=== PATIENT | male | born 1955 | race Caucasian/White ===

== ENCOUNTER 2021-05-23 14:35 | Emergency (ER) | payer MEDICARE ==
[2021-05-23] MEDS ORDERED: DUONEB 0.5-3 MG/3 ml Neb IH ONE ×2 (14:52→15:12)
[2021-05-23] MEDS ORDERED: solu-MEDROL 125 MG, Sterile H2O 10 ml 2 ML IV ONE ×2 (14:52)
[2021-05-23] MEDS ORDERED: Zofran 4 MG/2 ML VIAL IV ONE (14:57)
--- NOTE | 2021-05-23 15:10 | ERPHSYRPT ---
- History of Present Illness Time Seen by Provider: 05/23/21 14:35 Source: patient Exam Limitations: no limitations Patient Subjective Stated Complaint: PT states "I have been short of breath for the past two days. I fell and hurt my ribs on the right side." Triage Nursing Assessment: Pt presented alert and oriented X 3, skin pwd Pt ambulates with an upright steady gait. PT able to speak in clear full sentences. PT makes comments on all his vitals saying how horrible they are. Pt asking about specific doctors as well. Pt resting comfortably on the bed. Physician History: 66 years old male with history of chronic respiratory failure secondary to COPD on 3 L oxygen, coronary artery disease status post CABG, congestive heart failure, atrial fibrillation on Xarelto presented in the ER with chief complaint of increasing shortness of breath and right-sided chest pain for the last 2 days. Patient report it started after he stumbled and fell 2 days ago on ground hitting his right hip and right chest wall. He is able to ambulate without any difficulty and has minimal discomfort in the right hip but complaining of pain in the right anterior chest wall especially with deep breathing and also having increasing difficulty breathing especially with activity. Reports oxygen saturation dropping to 70s despite being on 3 L earlier today. No left-sided chest pain. Does have chronic productive cough which is not any worse than usual. No fever or chills reported. Vaccinated against COVID-19. Timing/Duration: day(s) (2), intermittent, gradual onset, worse Activities at Onset: activity, rest Severity of Dyspnea-Max: moderate Severity of Dyspnea-Current: moderate Modifying Factors: Worsens With: activity, coughing, deep breath Associated Symptoms: cough, chest pain/discomfort, wheezing, productive cough Allergies/Adverse Reactions: morphine Allergy (Verified 06/02/13 09:48) Home Medications: Albuterol/Ipratropium 3ml Neb* [DUONEB 0.5-3 MG/3 ml Neb] 3 ml IH Q4HPRN PRN 06/02/13 [History] ALPRAZolam 0.5 MG [xanAX 0.5 MG] 0.5 mg PO TID PRN PRN 06/19/13 [History] ALPRAZolam 1 MG [Xanax 1 mg] 1 mg PO DAILY 06/19/13 [History] Budesonide/Formoterol Fumarate [Symbicort 160-4.5 Mcg Inhaler] 2 inh IH DAILY 06/19/13 [History] Furosemide 20 mg [Lasix 20 mg] 20 mg PO DAILY 06/19/13 [History] Nitroglycerin 0.4 mg Tablet [Nitrostat 0.4 MG Tablet] 1 tablet SL Q5MIN PRN MR X 3 PRN 06/19/13 [History] PANTOPRAZOLE 40 mg Tablet [Protonix 40MG Tablet] 40 mg PO DAILY 06/19/13 [History] Prednisone 5 mg PO DAILY 06/19/13 [History] Ranolazine 500 MG [Ranexa 500 MG] 500 mg PO BID 06/19/13 [History] Rivaroxaban [Xarelto] 15 mg PO DAILY 06/19/13 [History] Digoxin 0.125 mg Tablet [Lanoxin 0.125MG TABLET] 0.125 mg PO WEEKLY 05/23/21 [History] Fluticasone/Umeclidin/Vilanter [Trelegy Ellipta 200-62.5-25] 1 unit PO DAILY 05/23/21 [History] Spironolactone [Aldactone] 50 mg PO DAILY 05/23/21 [History] Hx Tetanus, Diphtheria Vaccination/Date Given: No Hx Influenza Vaccination/Date Given: No Hx Pneumococcal Vaccination/Date Given: No Immunizations Up to Date: Yes Travel Risk - International Travel Have you traveled outside of the country in past 3 weeks: No - Coronavirus Screening Are you exhibiting any of the following symptoms?: No Close contact with a COVID-19 positive Pt in past 14-21 Days: No - Vaccine Status Have you recieved a Covid-19 vaccination: Yes [employer]: Moderna - Vaccination Dates Date of 2cond Vaccination (if applicable): 09/08/2020 - Review of Systems Constitutional: No Symptoms Eyes: No Symptoms Ears, Nose, & Throat: No Symptoms Respiratory: Cough, Dyspnea, Dyspnea on Exertion (REA), Wheezing Cardiac: Chest Pain Abdominal/Gastrointestinal: No Symptoms Genitourinary Symptoms: No Symptoms Musculoskeletal: Injury Skin: No Symptoms Neurological: No Symptoms Psychological: No Symptoms Endocrine: No Symptoms Hematologic/Lymphatic: No Symptoms Immunological/Allergic: No Symptoms - Past Medical History Pertinent Past Medical History: Yes Neurological History: No Pertinent History ENT History: No Pertinent History Cardiac History: Arrhythmia, Coronary Artery Disease, Myocardial Infarction ([place]) Respiratory History: COPD Musculoskeletal History: No Pertinent History GI Medical History: GERD History: No Pertinent History Psycho-Social History: No Pertinent History Male Reproductive Disorders: No Pertinent History Other Medical History: atrial flutter/ fib. CHF. [place] - Past Surgical History Past Surgical History: Yes Neuro Surgical History: No Pertinent History Cardiac: CABG Respiratory: No Pertinent History Gastrointestinal: No Pertinent History Genitourinary: No Pertinent History Musculoskeletal: No Pertinent History Male Surgical History: No Pertinent History - Social History Smoking Status: Former smoker Exposure to second hand smoke: No Drug Use: none Patient Lives Alone: No - Nursing Vital Signs Nursing Vital Signs: Initial Vital Signs Temperature 97.6 F 05/23/21 14:35 Pulse Rate 110 H 05/23/21 14:35 Respiratory Rate 24 05/23/21 14:35 Blood Pressure 125/83 05/23/21 14:35 O2 Sat by Pulse Oximetry 96 05/23/21 14:35 Pain Scale Pain Intensity 4 - Physical Exam General Appearance: no apparent distress, alert Eye Exam: PERRL/EOMI, eyes nml inspection Ears, Nose, Throat Exam: hearing grossly normal, normal ENT inspection, normal pharynx Neck Exam: normal inspection, non-tender, supple, full range of motion Respiratory Exam: diminished breath sounds, wheezing, other (Right mid anterior chest wall tenderness. No crepitus. No contusion) Cardiovascular/Chest Exam: normal heart sounds, irregular Abdominal/Gastrointestinal Exam: soft, normal bowel sounds, No tenderness Extremity Exam: non-tender, normal range of motion, normal inspection, normal capillary refill Neurologic Exam: alert, oriented x 3, cooperative, visual c developer II-XII nml as tested Skin Exam: normal color SpO2 Interpretation: normal, O2 applied SpO2: 96 O2 Delivery: Nasal Cannula (3L) - Course EKG Interpreted by Me: RATE (115. Atrial flutter 2;1 conduction), NORMAL AXIS, prolonged QT interval, Non-specific ST Changes (Nonspecific T wave changes) Ordered Tests: Active Orders 24 hr Category Date Time Status Wool Merchant STAT Care 05/23/21 14:55 Active EKG-ER Only STAT Care 05/23/21 14:52 Active IV Insertion STAT Care 05/23/21 14:52 Active Oxygen-ED Only Nasal Cannula 3 lpm Care 05/23/21 14:52 Active 1600 Calorie Carbohydrate Diet [Consistent Carbohydrate Diet 05/24/21 Dinner Active Diet 1600 Calorie] CHEST 1 VIEW (PORTABLE) Stat Exams 05/23/21 15:46 Completed RIBS UNILATERAL Stat Exams 05/23/21 Completed ABG [ARTERIAL BLOOD GASES] Stat Lab 05/23/21 17:25 Completed BLOOD CULTURE Stat Lab 05/23/21 15:19 Received CBC W DIFF Stat Lab 05/23/21 14:55 Completed CMP Stat Lab 05/23/21 14:55 Completed Lactic Acid Stat Lab 05/23/21 15:00 Completed MAGNESIUM Stat Lab 05/23/21 14:55 Completed NT PRO BNP Stat Lab 05/23/21 14:55 Completed TROPONIN Q3H Lab 05/23/21 14:55 Completed TROPONIN Q3H Lab 05/23/21 18:00 Received TROPONIN Q3H Lab 05/23/21 21:00 Ordered TROPONIN Q3H Lab 05/24/21 00:00 Ordered TROPONIN Q3H Lab 05/24/21 03:00 Ordered Respiratory Therapy Assessment DAILY RT 05/23/21 15:24 Active Medication Summary Discontinued Medications Generic Name Dose Route Start Last Admin Trade Name Freq PRN Reason Stop Dose Admin Albuterol/Ipratropium 3 ml 05/23/21 14:52 05/23/21 15:15 Ipratropium/Albuterol Sulfate 3 Ml Ampul.Neb IH 05/23/21 14:53 3 ml STAT ONE Administration Albuterol/Ipratropium Confirm 05/23/21 15:12 Ipratropium/Albuterol Sulfate 3 Ml Ampul.Neb Administered 05/23/21 15:13 Dose 3 ml IH .STK-MED ONE Methylprednisolone Sodium 0 mg 05/23/21 14:52 05/23/21 15:25 Succinate 125 mg/ Sterile IV 05/23/21 14:53 125 mg Water 2 ml STAT ONE Administration Doxycycline Hyclate 100 mg 05/23/21 17:47 05/23/21 17:52 Doxycycline Hyclate 100 Mg Tablet PO 05/23/21 17:48 100 mg STAT ONE Administration Doxycycline Hyclate Confirm 05/23/21 17:51 Doxycycline Hyclate 100 Mg Tablet Administered 05/23/21 17:52 Dose 100 mg .ROUTE .STK-MED ONE Fentanyl Citrate 50 mcg 05/23/21 14:57 05/23/21 15:32 Fentanyl Citrate 100 Mcg/2 Ml* Vial IV 05/23/21 14:58 Not Given STAT ONE Fentanyl Citrate Confirm 05/23/21 15:17 Fentanyl Citrate 100 Mcg/2 Ml* Vial Administered 05/23/21 15:18 Dose 100 mcg .ROUTE .STK-MED ONE Methylprednisolone Sodium Succinate Confirm 05/23/21 15:17 Methylprednis Sod Succ 125 Mg/2 Ml Vial Administered 05/23/21 15:18 Dose 125 mg .ROUTE .STK-MED ONE Metoprolol Tartrate 2.5 mg 05/23/21 16:34 05/23/21 17:05 Metoprolol Tartrate 5 Mg/5 Ml Injection IV 05/23/21 16:35 2.5 mg STAT ONE Administration Metoprolol Tartrate Confirm 05/23/21 17:02 Metoprolol Tartrate 5 Mg/5 Ml Injection Administered 05/23/21 17:03 Dose 5 mg IV .STK-MED ONE Ondansetron HCl 4 mg 05/23/21 14:57 05/23/21 15:26 Ondansetron Hcl 4 Mg/2 Ml Vial IV 05/23/21 14:58 4 mg STAT ONE Administration Ondansetron HCl Confirm 05/23/21 15:16 Ondansetron Hcl 4 Mg/2 Ml Vial Administered 05/23/21 15:17 Dose 4 mg .ROUTE .STK-MED ONE Sterile Water Confirm 05/23/21 15:17 Water For Injection,Sterile 10 Ml Vial Administered 05/23/21 15:18 Dose 10 ml IJ .STK-MED ONE Lab/Rad Data: Laboratory Result Diagrams 05/23/21 14:55 05/23/21 14:55 Laboratory Results 05/23/21 05/23/21 05/23/21 Range/Units 17:25 15:13 15:00 WBC (4.0-10.5) K/mm3 RBC (4.1-5.6) M/mm3 Hgb (12.5-18.0) gm/dl Hct (42-50) % MCV (78-100) fl MCH (26-32) pg MCHC (32-36) g/dl RDW (11.5-14.0) % Plt Count (150-450) K/mm3 MPV (7.5-11.0) fl Gran % (36.0-66.0) % Eos # (Auto) (0-0.5) Absolute Lymphs (auto) (1.0-4.6) Absolute Monos (auto) (0.0-1.3) Lymphocytes % (24.0-44.0) % Monocytes % (0.0-12.0) % Eosinophils % (0.00-5.0) % Basophils % (0.0-0.4) % Absolute Granulocytes (1.4-6.9) Basophils # (0-0.4) Puncture Site RIGHT BRACHIAL pCO2 90 H* (35-45) mmHg pO2 84 (75-100) mmHg Base Excess 17.9 H (-2.0-2.0) O2 Saturation 94.6 (94-100) g/dF ABG pH 7.34 L (7.35-7.45) ABG HCO3 48.6 H* (22-28) ABG O2 Sat (Measured) 97.3 (95-100) % Freddie Test NOT APPLICABLE A-a Gradient 32 a/A Ratio 0.72 Hemoglobin 13.7 Carboxyhemoglobin 1.8 (0.0-6.9) % THgb Methemoglobin 0.9 L (1.4-1.5) % Temperature 37.0 C POC O2 Flow Rate 32 % Sodium (137-145) mmol/L Potassium 5.2 H (3.5-5.1) mmol/L Chloride (98-107) mmol/L Carbon Dioxide (22-30) mmol/L Anion Gap (5-15) MEQ/L BUN (9-20) mg/dL Creatinine (0.66-1.25) mg/dL Estimated GFR ML/MIN Glucose (74-106) mg/dL Lactic Acid 1.2 (0.4-2.0) Calcium (8.4-10.2) mg/dL Magnesium (1.6-2.3) mg/dL Total Bilirubin (0.2-1.3) mg/dL AST (17-59) U/L ALT (0-50) U/L Alkaline Phosphatase (38-126) U/L Troponin I (0.000-0.034) ng/mL NT-Pro-B Natriuret Pep (0-900) pg/mL Serum Total Protein (6.3-8.2) g/dL Albumin (3.5-5.0) g/dL Digoxin < 0.4 L (0.8-1.9) ng/mL 05/23/21 05/23/21 05/23/21 Range/Units 14:55 14:55 14:55 WBC 7.9 (4.0-10.5) K/mm3 RBC 4.30 (4.1-5.6) M/mm3 Hgb 13.4 (12.5-18.0) gm/dl Hct 44.4 (42-50) % MCV 103.3 H (78-100) fl MCH 31.2 (26-32) pg MCHC 30.2 L (32-36) g/dl RDW 11.9 (11.5-14.0) % Plt Count 100 L (150-450) K/mm3 MPV 12.6 H (7.5-11.0) fl Gran % 87.4 H (36.0-66.0) % Eos # (Auto) 0.03 (0-0.5) Absolute Lymphs (auto) 0.49 L (1.0-4.6) Absolute Monos (auto) 0.47 (0.0-1.3) Lymphocytes % 6.2 L (24.0-44.0) % Monocytes % 5.9 (0.0-12.0) % Eosinophils % 0.4 (0.00-5.0) % Basophils % 0.1 (0.0-0.4) % Absolute Granulocytes 6.93 H (1.4-6.9) Basophils # 0.01 (0-0.4) Puncture Site pCO2 (35-45) mmHg pO2 (75-100) mmHg Base Excess (-2.0-2.0) O2 Saturation (94-100) g/dF ABG pH (7.35-7.45) ABG HCO3 (22-28) ABG O2 Sat (Measured) (95-100) % Freddie Test A-a Gradient a/A Ratio Hemoglobin Carboxyhemoglobin (0.0-6.9) % THgb Methemoglobin (1.4-1.5) % Temperature C POC O2 Flow Rate % Sodium 138 (137-145) mmol/L Potassium 5.0 (3.5-5.1) mmol/L Chloride 87 L (98-107) mmol/L Carbon Dioxide > 40 H (22-30) mmol/L Anion Gap 11 (5-15) MEQ/L BUN 21 H (9-20) mg/dL Creatinine 0.69 (0.66-1.25) mg/dL Estimated GFR > 60.0 ML/MIN Glucose 194 H (74-106) mg/dL Lactic Acid (0.4-2.0) Calcium 9.5 (8.4-10.2) mg/dL Magnesium 1.9 (1.6-2.3) mg/dL Total Bilirubin 0.60 (0.2-1.3) mg/dL AST 18 (17-59) U/L ALT 6 (0-50) U/L Alkaline Phosphatase 77 (38-126) U/L Troponin I 0.012 (0.000-0.034) ng/mL NT-Pro-B Natriuret Pep 900 (0-900) pg/mL Serum Total Protein 6.4 (6.3-8.2) g/dL Albumin 3.6 (3.5-5.0) g/dL Digoxin (0.8-1.9) ng/mL - Progress Progress: improved Air Movement: good Progress Note: 05/23/21 18:28 66 years old is evaluated for right-sided chest pain after fall and some shortness of breath. EKG showed atrial flutter without any ST elevation and negative troponins x2. Chest x-ray negative for any acute cardiopulmonary findings. Given Solu-Medrol along with breathing treatment, on reevaluation feeling better. Has normal white count, chemistry profile showed CO2 retention but comparison with previous ABGs revealed he is always high with CO2 retention. He is maintaining oxygen saturation around 98% on 3 L which he is normally on. Not in any distress. Nontoxic in appearance. I believe patient has COPD exacerbation and given a dose of doxycycline in here and will continue to go home with short course of steroid. Discussed signs symptoms of worsening needing return to ER which he seems understanding. Antibiotics given: Yes Counseled pt/family regarding: lab results, diagnosis, need for follow-up, rad results - Departure Departure Disposition: Home Clinical Impression: COPD exacerbation Condition: Stable Critical Care Time: No Referrals: FAUSTINO,KENAN D [Primary Care Provider] - (1-2 days for reevaluation) Instructions: Chronic Obstructive Pulmonary Disease, Exacerbation of COPD (DC) Additional Instructions: Follow-up with primary care and pulmonology for reevaluation. Continue with breathing treatments every 4-6 hours which you have at home. Return to ER for any worsening shortness of breath or if develop chest pain/fever chills etc. Prescriptions: Prednisone 20 mg [Deltasone 20 mg] 60 mg PO DAILY 5 Days #15 tablet Doxycycline Hyclate 100 mg [Vibramycin 100 MG] 100 mg PO BID #14 tab
[2021-05-23] MEDS ORDERED: Zofran 4 MG/2 ML VIAL ONE (15:16)
[2021-05-23] MEDS ORDERED: solu-MEDROL ONE (15:17)
[2021-05-23] MEDS ORDERED: Sterile H2O 10 ml IJ ONE (15:17)
[2021-05-23] MEDS ORDERED: SUBLIMAZE 100 MCG/2 ML ONE (15:17)
[2021-05-23] MEDS: SUBLIMAZE 100 MCG/2 ML IV ONE ×2 (15:24→15:32)
[2021-05-23 15:26] LABS: Absolute Neutrophil Ct (ANC) 6.93 (1.4-6.9); BASOPHIL % 0.1 % (0.0-0.4); Basophil (Absolute #) 0.01 (0-0.4); Eosinophil % 0.4 % (0.00-5.0); Eosinophil (Absolute #) 0.03 (0-0.5); Hematocrit 44.4 % (42-50); Hemoglobin 13.4 gm/dl (12.5-18.0); Lymphocyte (Absolute #) 0.49 (1.0-4.6); Lymphocytes % 6.2 % (24.0-44.0); Mean Cell Volume 103.3 fl (78-100); Mean Corpuscular Hemoglobin 31.2 pg (26-32); Mean Corpuscular Hgb Concent. 30.2 g/dl (32-36); Mean Platelet Volume 12.6 fl (7.5-11.0); Monocyte (Absolute #) 0.47 (0.0-1.3); Monocytes % 5.9 % (0.0-12.0); Neutrophil % 87.4 % (36.0-66.0); Platelet Count 100 K/mm3 (150-450); Red Cell Distribution Width 11.9 % (11.5-14.0); White Blood Count 7.9 K/mm3 (4.0-10.5)
[2021-05-23 15:57] LABS: ALBUMIN 3.6 g/dL (3.5-5.0); ALKALINE PHOSPHATASE 77 U/L (38-126); BLOOD UREA NITROGEN 21 mg/dL (9-20); CHLORIDE 87 mmol/L (98-107); Calcium 9.5 mg/dL (8.4-10.2); Creatinine 1 0.69 mg/dL (0.66-1.25); EST GLOMERULAR FILTRATION RATE > 60.0 ML/MIN; Glucose 194 mg/dL (74-106); MAGNESIUM 1.9 mg/dL (1.6-2.3); NT PRO BNP 900 pg/mL (0-900); SGOT/AST 18 U/L (17-59); SGPT/ALT 6 U/L (0-50); SODIUM 138 mmol/L (137-145); Total Protein 6.4 g/dL (6.3-8.2)
[2021-05-23 16:08] LABS: ANION GAP 11 MEQ/L (5-15); Carbon Dioxide > 40 mmol/L (22-30)
--- NOTE | 2021-05-23 16:29 | XRAY ---
Indication: Pain following fall. Comparison: None 2 view right ribs demonstrates CABG and mild right acromioclavicular degenerative arthropathy. No other bony, articular, or soft tissue abnormalities.
--- NOTE | 2021-05-23 16:31 | XRAY ---
Indication: Pain following fall. Comparison: June 19, 2013. Portable chest demonstrates new left infrahilar subsegmental atelectasis/scarring. Stable left costophrenic angle blunting favoring pleural thickening. Incidental bilateral nipple shadows. No focal infiltrate, consolidation, or large effusion. Heart not enlarged for AP portable technique again with CABG surgery. Bony thorax intact. Impression: Nonacute chest with chronic features.
[2021-05-23] MEDS ORDERED: LOPRESSOR 5 MG/5 ML INJECTION IV ONE ×2 (16:34→17:02)
[2021-05-23 17:29] LABS: A-aADO2 32; ABG HEMOGLOBIN 13.7; ABG POTASSIUM 5.2 (3.5-5.1); ARTERIAL BLD GAS O2 SATURATION 97.3 % (95-100); ARTERIAL BLOOD GAS BASE EXCESS 17.9 (-2.0-2.0); ARTERIAL BLOOD GAS FIO2 32 %; ARTERIAL BLOOD GAS PO2 84 mmHg (75-100); ARTERIAL BLOOD GAS pH 7.34 (7.35-7.45); CARBOXYHEMOGLOBIN 1.8 % THgb (0.0-6.9); HCO3- 48.6 (22-28); HGB O2 SAT 94.6 g/dF (94-100); Methhemoglobin 0.9 % (1.4-1.5)
[2021-05-23 17:30] LABS: ABG SITE RIGHT BRACHIAL; ARTERIAL BLOOD GAS PCO2 90 mmHg (35-45)
[2021-05-23] MEDS ORDERED: Vibramycin 100 MG PO ONE (17:47)
[2021-05-23] MEDS ORDERED: Vibramycin 100 MG ONE (17:51)
[2021-05-23 18:59] VITALS: BP 116/87; PULSE 92; O2SAT 97
[2021-05-23 20:21] LABS: Slide Review 1 YES
== END 2021-05-23 18:59 | disposition home or self-care (01) ==
LOC: ED 14:35
DX: J44.1 Chronic obstructive pulmonary disease with (acute) exacerbation (principal); Z79.899 Other long term (current) drug therapy
CPT/HCPCS: 36000; 36415; 36600; 71045; 71100; 80053; 80162; 82375; 82803; 83605; 83735; 83880; 84484; 85025; 87040; 93005; 93041; 94640; 96374; 96375; 99284; J2405; J2930; J3010; A9270-GY